=== PATIENT | female | born 2000 ===

== ENCOUNTER → 2021-05-11 | Outpatient (CLI) | payer SELFPAY | LOC: LAB SHORT 10:40 | DX: J02.9 Acute pharyngitis, unspecified (principal) | CPT/HCPCS: 87081 ==

== ENCOUNTER → 2022-01-06 | Outpatient (CLI) | payer BC | END | disposition home or self-care (01) | LOC: PLD 11:15 → LAB SHORT 11:15 | DX: D22.61 Melanocytic nevi of right upper limb, including shoulder (principal) | CPT/HCPCS: 88305 ==

== ENCOUNTER → 2022-06-04 | Outpatient (CLI) | payer BC | END | disposition home or self-care (01) | LOC: PLD 10:51 → LAB SHORT 10:51 | DX: Q82.8 Other specified congenital malformations of skin (principal) | CPT/HCPCS: 88305 ==